=== PATIENT | male | born 2000 | race African-American/Black ===

== ENCOUNTER 2024-01-31 09:57 | Emergency (ER) | payer MEDICAID ==
[~2024-01-31] VITALS: Ht 177.8 cm; Wt 86.2 kg
[2024-01-31] MEDS ORDERED: dexaMETHasone SOD PHOSPHATE 1 ML ONE (10:30)
[2024-01-31] MEDS ORDERED: KETOROLAC TROMETHAMINE 15 MG/ML VIAL ONE (10:30)
[2024-01-31] MEDS: dexaMETHasone SOD PHOSPHATE 10 MG/ML VIAL IV ONE (10:40)
[2024-01-31] MEDS: KETOROLAC TROMETHAMINE 15 MG/ML VIAL IV ONE (10:42)
[2024-01-31 10:46] LABS: BASOPHILS % (AUTO) 0.4 % (0.0-2.0); EOSINOPHILS % (AUTO) 0.3 % (0.0-6.0); HEMATOCRIT 44 % (39-51); HEMOGLOBIN 15.4 g/dL (13.5-17.5); LYMPHOCYTES % (AUTO) 14.9 % (20.0-44.0); MEAN CORPUSCULAR HEMOGLOBIN 32 PG (26.0-33.0); MEAN CORPUSCULAR HGB CONC 36 g/dl (31.0-36.0); MEAN CORPUSCULAR VOLUME 90 fL (80-96); MONOCYTES # (AUTO) 1.7 K/uL (0.1-1.30); MONOCYTES % (AUTO) 12.8 % (2.0-12.0); NEUTROPHILS # (AUTO) 9.4 K/uL (1.8-8.9); NEUTROPHILS % (AUTO) 71.6 % (43.0-81.0); PLATELET COUNT (AUTO) 275 K/uL (150-450); RED BLOOD CELL COUNT(AUTO) 4.84 MIL/uL (4.5-6.0); RED CELL DISTRIBUTION WIDTH 13.2 % (11.5-15.0); WHITE BLOOD COUNT (AUTO) 13.2 K/uL (4.3-11.0)
[2024-01-31] MEDS ORDERED: DOXY100C2 PO (11:13)
[2024-01-31] MEDS ORDERED: AMOX-430 PO (11:13)
[2024-01-31] MEDS ORDERED: CEFTRIAXONE 500 MG VIAL ONE (11:15)
[2024-01-31] MEDS: CEFTRIAXONE 0.5 G in IV D5W 50 ML IV ONE (11:26)
[2024-01-31 12:48] VITALS: BP 124/63; TEMP 97.8; O2SAT 99
[2024-02-01 04:07] LABS: RAPID PLASMA REAGIN QUAL. Non Reactive (Non Reactive)
== END 2024-01-31 12:09 | disposition home or self-care (01) ==
LOC: ER 10:12
DX: J02.9 Acute pharyngitis, unspecified (principal); F17.200 Nicotine dependence, unspecified, uncomplicated; Z20.822 Contact with and (suspected) exposure to COVID-19; Z79.899 Other long term (current) drug therapy
CPT/HCPCS: 99284; 96365; 96375; 71045; 87426; 86592; 86593; 85025; 87070; 36415; 87880; J1100; J0696; J7060; J1885; 86403-TC